=== PATIENT | male | born 1965 ===

== ENCOUNTER → 2018-11-06 | Outpatient (CLI) | payer BC ==
[~2018-11-06] MED LIST: GADOPENTETATE DIMEGLUMINE (10MMOL/20 ML) VIAL IV ONE; IOHEXOL 300 MG/ML 100ML BOTTLE IJ ONE; LIDOCAINE 2%HCL (LOCAL ANESTH.) INJ 20ML MDV ONE
== END | disposition home or self-care (01) ==
LOC: XY 10:38
DX: M25.511 Pain in right shoulder (principal)
CPT/HCPCS: 23350; 77002